=== PATIENT | male | born 1935 | race Caucasian/White ===

== ENCOUNTER → 2017-10-17 | Outpatient (CLI) | payer MEDICARE | END | disposition home or self-care (01) | LOC: CFH 08:12 | PROVIDERS: ATTEND Internal Medicine | DX: D72.819 Decreased white blood cell count, unspecified (principal); N28.1 Cyst of kidney, acquired; I82.409 Acute embolism and thrombosis of unspecified deep veins of unspecified lower extremity; D69.6 Thrombocytopenia, unspecified; M85.30 Osteitis condensans, unspecified site; K40.91 Unilateral inguinal hernia, without obstruction or gangrene, recurrent; L60.9 Nail disorder, unspecified; I12.9 Hypertensive chronic kidney disease with stage 1 through stage 4 chronic kidney disease, or unspecified chronic kidney disease; N18.3 Chronic kidney disease, stage 3 (moderate); E78.1 Pure hyperglyceridemia; I25.10 Atherosclerotic heart disease of native coronary artery without angina pectoris; Z90.49 Acquired absence of other specified parts of digestive tract | CPT/HCPCS: 76700 ==

== ENCOUNTER → 2018-03-12 | Outpatient (CLI) | payer MEDICARE | END | disposition home or self-care (01) | LOC: RAD 15:39 | PROVIDERS: ATTEND Nurse Practitioner Primary Care | DX: I65.23 Occlusion and stenosis of bilateral carotid arteries (principal); R73.9 Hyperglycemia, unspecified; E78.1 Pure hyperglyceridemia; I25.10 Atherosclerotic heart disease of native coronary artery without angina pectoris; I12.9 Hypertensive chronic kidney disease with stage 1 through stage 4 chronic kidney disease, or unspecified chronic kidney disease; N18.3 Chronic kidney disease, stage 3 (moderate); I82.409 Acute embolism and thrombosis of unspecified deep veins of unspecified lower extremity; Z90.49 Acquired absence of other specified parts of digestive tract | CPT/HCPCS: 93880 ==

== ENCOUNTER → 2018-09-03 | Outpatient (CLI) | payer MEDICARE | END | disposition home or self-care (01) | LOC: CFH 08:41 | PROVIDERS: ATTEND Nurse Practitioner Primary Care | DX: K40.91 Unilateral inguinal hernia, without obstruction or gangrene, recurrent (principal); M25.552 Pain in left hip; I12.9 Hypertensive chronic kidney disease with stage 1 through stage 4 chronic kidney disease, or unspecified chronic kidney disease; N18.3 Chronic kidney disease, stage 3 (moderate); E78.1 Pure hyperglyceridemia; Z79.899 Other long term (current) drug therapy | CPT/HCPCS: 76857 ==

== ENCOUNTER 2021-03-29 11:44 | Outpatient (CLI) | payer MEDICARE ==
[2021-03-29] MEDS ORDERED: REGADENOSON 0.4 MG/5 ML SYRINGE ONE ×2 (12:18→13:11)
== END 2021-03-29 23:59 | disposition home or self-care (01) ==
LOC: CFH 11:44
PROVIDERS: ATTEND Student in an Organized Health Care Education/Training Program
DX: I10 Essential (primary) hypertension (principal); I25.10 Atherosclerotic heart disease of native coronary artery without angina pectoris
CPT/HCPCS: 78452; 93017; A9502; J2785